=== PATIENT | male | born 1970 | race Caucasian/White ===

== ENCOUNTER 2021-09-16 18:52 | Emergency (ER) | payer SELFPAY ==
[~2021-09-16] VITALS: Ht 177.8 cm; Wt 113.4 kg
[2021-09-16 19:08] VITALS: BP 128/78
--- NOTE | 2021-09-16 19:08 | NUR ---
PT TRIAGED. PT TO A/W IN AMB FOR BED.
--- NOTE | 2021-09-16 21:54 | NUR ---
AMBULATED TO LOBBY WITH MINIMAL ASSIST.
--- NOTE | 2021-09-16 22:40 | NUR ---
PT CALLED BY DR. SCHULZ FOR REEVALUATION WITH NO ANSWER.
[2021-09-16] MEDS ORDERED: BLOOD GLUCOSE MONITORING 1 DEV DEV FS ONE (23:00)
--- NOTE | 2021-09-16 23:15 | NUR ---
PT CALLED AGAIN WITH NO ANSWER.
--- NOTE | 2021-09-17 | NUR ---
PT CALLED FOR FINAL TIME WITH NO ANSWER. PATIENT ELOPED FROM FACILITY. DISCHARGE INSTRUCTIONS NOT GIVEN TO PATIENT. DR. PANCHAL NOTIFIED.
--- NOTE | 2021-09-17 02:36 | NUR ---
PT [facility]PD AT 5636
== END 2021-09-17 | disposition left against medical advice (07) ==
LOC: MED 18:52
DX: S09.90XA Unspecified injury of head, initial encounter (principal); F10.129 Alcohol abuse with intoxication, unspecified; R41.82 Altered mental status, unspecified; E11.9 Type 2 diabetes mellitus without complications; Z79.84 Long term (current) use of oral hypoglycemic drugs; X58.XXXA Exposure to other specified factors, initial encounter; Y93.01 Activity, walking, marching and hiking; Y92.89 Other specified places as the place of occurrence of the external cause; Y99.8 Other external cause status
CPT/HCPCS: 70450; 72125; 99284